=== PATIENT | male | born 1950 | race Caucasian/White ===

== ENCOUNTER → 2017-02-28 | Outpatient (CLI) | payer OTHER ==
[~2017-02-28] MED LIST: ASPI-232 PO; CHOL1CAP57 PO; FERR28TA2 PO; GLUCTAB7 PO; GLY/5 PO; NAPR1TAB9 PO; OMEGCAP2 PO; OXYC-57 PO; PRLSR20 PO; SITA50TA5 PO
--- NOTE | 2017-02-28 10:42 | DIAGNOSTIC IMAGING REPORT ---
CT SCAN OF THE CHEST WITHOUT IV CONTRAST CLINICAL HISTORY: Follow-up pulmonary nodule. COMPARISON STUDY: Chest CT scans dated 07/30/2016 and 11/28/2015. PET/CT dated 05/07/2015. TECHNIQUE: CT scan of the thorax was performed from the thoracic inlet to the upper abdomen. Images are reviewed in the axial, sagittal, and coronal planes. IV contrast was not administered for this examination. CT DOSE: 333.77 mGy.cm FINDINGS: Thyroid: Imaged portions of the thyroid gland are normal in size and attenuation. Subcentimeter low-attenuation nodules are identified. Thoracic aorta: There is mild atherosclerotic calcification of the thoracic aorta, which is normal in caliber and demonstrates standard 3-vessel arch anatomy. Heart: The heart is normal in size and there is trace pericardial effusion. The coronary arteries are densely calcified. Lungs and pleural spaces: Mild emphysematous change is observed. There is no airspace consolidation or pleural effusion. Again seen is a 1.3 cm pleural-based nodule at the right lung base on image #228. Small foci of nodular pleural thickening are seen along the right major fissure on image #168. These measure up to 8 mm. A 4 mm pleural-based nodule in the lingula is unchanged as seen on image #264. No new pulmonary lesion is seen. The trachea and central airways are clear. Mediastinum: There is no mediastinal lymphadenopathy. Ana Maria: Clear. Axillae: There is no axillary lymphadenopathy. Upper abdomen: There is a tiny hiatal hernia. Partially visualized upper abdominal viscera is otherwise within normal limits. Skeletal structures: The skeletal structures are osteopenic. No lytic or blastic bony lesions are seen. A bone island is incidentally noted in the right fourth rib. IMPRESSION: 1. Again seen is a 1.3 cm pulmonary nodule at the right lung base. This is unchanged to minimally increased in size from the 07/30/2016 examination. 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 Surgical consultation is advised. 2. Additional subcentimeter pulmonary and pleural-based nodules are similar to previous. 3. Mild emphysema. 4. The coronary arteries are densely calcified. 5. No airspace consolidation or pleural effusion is identified Electronically signed by: Gerardo Veras M.D. 02/28/2017 10:41 AM Dictated Date/Time: 02/28/2017 10:01 AM
== END | disposition home or self-care (01) ==
LOC: C.CTS 09:44
PROVIDERS: ATTEND Internal Medicine Pulmonary Disease
DX: R91.1 Solitary pulmonary nodule (principal)

== ENCOUNTER → 2017-05-22 | Outpatient (CLI) | payer OTHER ==
--- NOTE | 2017-05-22 14:15 | DIAGNOSTIC IMAGING REPORT ---
RIGHT THIGH ULTRASOUND CLINICAL HISTORY: RIGHT HAMSTRING INJURY *STAT Right. Right posterior thigh pain. COMPARISON STUDY: None. FINDINGS: Real-time sonographic imaging of the right hamstring muscles were performed. The hamstring muscles appear intact. No edema or fluid collections to suggest a hematoma. IMPRESSION: No significant abnormality seen within the right posterior thigh/hamstring muscles. Electronically signed by: Fer Macias M.D. 05/22/2017 2:14 PM Dictated Date/Time: 05/22/2017 2:13 PM
== END | disposition home or self-care (01) ==
LOC: C.ULTR 12:25
PROVIDERS: ATTEND Family Medicine
DX: S76.301A Unspecified injury of muscle, fascia and tendon of the posterior muscle group at thigh level, right thigh, initial encounter (principal); X58.XXXA Exposure to other specified factors, initial encounter; M79.651 Pain in right thigh

== ENCOUNTER → 2018-05-29 | Outpatient (CLI) | payer OTHER ==
--- NOTE | 2018-05-29 09:05 | DIAGNOSTIC IMAGING REPORT ---
CT SCAN OF THE CHEST WITHOUT IV CONTRAST CLINICAL HISTORY: Pulmonary nodule follow-up. COMPARISON STUDY: Chest CT scans dated 02/28/2017 and 11/28/2015. PET/CT dated 05/07/2015. TECHNIQUE: CT scan of the thorax was performed from the thoracic inlet to the upper abdomen. Images are reviewed in the axial, sagittal, and coronal planes. IV contrast was not administered for this examination as per the front clinician. A dose lowering technique was utilized adhering to the principles of ALARA. CT DOSE: 700.48 mGycm FINDINGS: Thyroid: Imaged portions of the thyroid gland are normal in size and attenuation. Low-attenuation thyroid nodules measure up to 10 mm. These are similar to previous. Thoracic aorta: There is mild ectasia of the ascending thoracic aorta which measures up to 3.7 cm. The remainder of the thoracic aorta is normal in caliber. The arch demonstrates bovine variant anatomy. Heart: The heart is normal in size and there is trace pericardial fluid. There are coronary artery calcifications. Lungs and pleural spaces: Mild emphysematous change is suggested. There is no airspace consolidation or pleural effusion. The trachea and central airways are clear. There is a 1.4 cm pleural-based nodule in the right lower lobe seen image #217. There are 3 foci of nodular thickening identified along the right major fissure seen on images #166, #169, and #171 measuring up to 9 mm. A 3 mm right middle lobe nodule is seen on image #193, and a 4 mm left upper lobe nodule is seen adjacent to the thoracic aorta on image #90. Mediastinum: There is no mediastinal lymphadenopathy. Ana Maria: Not well assessed without IV contrast. Axillae: There is no axillary lymphadenopathy. Upper abdomen: There is a tiny hiatal hernia. Partially visualized upper abdominal viscera is otherwise grossly unremarkable. Skeletal structures: A bone island in the right pedicle of T5 is unchanged. No lytic or blastic bony lesions are seen. IMPRESSION: 1. There is unchanged appearance of a 14 mm nodule in the right lower lobe as compared to 02/28/2017. This has only modestly increased in size dating back to studies from 2014. This remains pathologically indeterminant, and a low-grade neoplasm such as carcinoid tumor is not excluded. If not already performed consider surgical consultation. 2. Additional foci of pleural-based nodularity along the right major fissure and small pulmonary nodules measure up to 4 mm are unchanged from previous. Continued attention at follow-up is advised. 3. Cardiomegaly and suspect mild emphysema. 4. There is no airspace consolidation or pleural effusion. 5. Additional findings as above. Electronically signed by: Gerardo Veras M.D. 05/29/2018 9:03 AM Dictated Date/Time: 05/29/2018 8:37 AM
== END | disposition home or self-care (01) ==
LOC: C.CTS 08:25
PROVIDERS: ATTEND Internal Medicine Pulmonary Disease
DX: R91.8 Other nonspecific abnormal finding of lung field (principal); I51.7 Cardiomegaly